=== PATIENT | male | born 1965 | race Caucasian/White ===

== ENCOUNTER → 2016-06-12 | Day surgery (SDC) | payer MEDICARE, OTHER ==
[~2016-06-12] MED LIST: ALPRAZOLAM; ALPRAZOLAM PO; AUGMENTIN PO; CATAPRES PATCH TD; CATAPRES-TTS-20.2 MG EXT; CIPRO; CIPRO PO; CIPRO750 M1 PO; CLEOCIN PO; CLONIDINE; DURAGESIC1 EAC1 TOP; DURAGESIC100 MCG EXT; DURAGESIC12 MCG; EFFEXOR75 M1 PO; FENTANYL1 PATCH .7; FLEXERIL PO; FLOMAX0.4 M1 PO; GLUCOTROL PO; GLUCOTROL XL PO; HYDROCODON-ACE1 EAC5 PO; IRON1 TAB PO; KEFLEX500 M1 PO; KLONOPIN TOP; LAMICTAL PO; LEVAQUIN PO; LEVAQUIN750 MG PO; LORTAB 10-3251 EACH PO; LORTAB 10/500 T1 TAB; LORTAB 10/500 T1 TAB PO; METOPROLOL TART25 MG PO; OXYCODON HCL-1 UDTA1 PO; OXYCODONE HCL15 MG PO; PERCOCET 10/31 UDTA1 PO; PERCOCET 10/3251 TAB PO; PERCOCET10 PO; PERCOCET5/325; PHENAZOPYRIDIN100 MG PO; PHENERGAN25 MG PO; PREDNISONE1 MG PO; TOPAMAX; TOPAMAX PO; XARELTO20 MG PO
--- NOTE | ~2016-06-12 | OR ---
Unit #: [id number] #: [id number] Patient: MINA KU [id number] [address] [place], [place] [address] [id number] O MR#: [id number] NAME: MINA KU ROOM: Date of Procedure: 06/12/2016 Admission Date: 06/12/2016 Surgeon: Castro Haider M.D. : 1965 Attending Physician: Castro Haider M.D. Primary Care Physician: Coleen Benitez M.D. PROCEDURE OPERATIVE NOTE PREOPERATIVE DIAGNOSIS Chronic regional pain syndrome lower extremity, phantom limb, intractable pain. POSTOPERATIVE DIAGNOSIS Chronic regional pain syndrome lower extremity, phantom limb, intractable pain. PROCEDURE PERFORMED Lumbar sympathetic block following intravenous sedation, fluoroscopic guidance and needle localization. HISTORY The patient is a 51-year-old male with return of symptoms associated with CRPS. This is due to multiple surgeries including AKA. He has lymphoma that has not responded to treatment either. The sympathetic *____ get bad. He has done well with LSB. His last injections were done over six months ago, last * sympathetic block * patient's history, pathology, symptomatology and treatment options. DESCRIPTION OF PROCEDURE The patient was placed in a prone position. Standard monitors were applied. A sterile prep and drape of the thoracolumbar area was performed. The skin at the left of midline at the L1 level was localized with 1% lidocaine. A long 22-gauge [place] spinal needle was then advanced with biplane fluoroscopy to the lateral border of the L1 vertebral body. The needle was then advanced to the anterolateral border of L1. After confirming proper positioning with biplane fluoroscopy, loss of resistance technique and with radiographic contrast, a dose of 10 mL of 0.25% bupivacaine was deposited. There was negative intermittent aspiration every 2-3 mL. The patient tolerated the procedure otherwise well and was discharged to the recovery room in stable condition. *Faxed to Dr. Haider' office on 06/19/16 for completion. cd Dictated by... Castro Haider M.D. IVA/luna TD: 06/19/2016 10:33 Unit #: [id number] #: [id number] Patient: MINA KU JOB #: [id number] PROCEDURE OPERATIVE NOTE Page 1 of 1 X Castro Haider MD X PROCEDURE OPERATIVE NOTE
== END | disposition home or self-care (01) ==
LOC: CCSC 07:14
DX: G90.522 Complex regional pain syndrome I of left lower limb (principal); I10 Essential (primary) hypertension; E11.9 Type 2 diabetes mellitus without complications; F41.9 Anxiety disorder, unspecified; F32.9 Major depressive disorder, single episode, unspecified; Z85.72 Personal history of non-Hodgkin lymphomas; Z89.619 Acquired absence of unspecified leg above knee
CPT/HCPCS: 82947; J2250; J3010

== ENCOUNTER → 2016-06-19 | Day surgery (SDC) | payer MEDICARE, OTHER ==
--- NOTE | ~2016-06-19 | OR ---
Unit #: [id number] #: [id number] Patient: MINA KU [id number] [address] [place], [place] [address] [id number] O MR#: [id number] NAME: MINA KU ROOM: Date of Procedure: 06/19/2016 Admission Date: 06/19/2016 Surgeon: Castro Haider M.D. : 1965 Attending Physician: Castro Haider M.D. Referring Physician: Castro Haider M.D. Primary Care Physician: Raven Smith M.D. OPERATIVE REPORT PREOPERATIVE DIAGNOSES Chronic regional pain syndrome, lower extremity and phantom limb pain. POSTOPERATIVE DIAGNOSES Chronic regional pain syndrome, lower extremity and phantom limb pain. PROCEDURE PERFORMED Lumbar sympathetic block with intravenous sedation under fluoroscopic guidance and needle localization. INDICATIONS FOR PROCEDURE The patient is a 51-year-old male with a previously mentioned diagnosis. He has failed all conservative trials and management with regard to resolving his RSD. He was treated medically with p.r.n. sympathetic blockade when his pain flares and will not settle. Injection in last week, which resulted in some mild to moderate improvement. This essentially is the second or third injection before the pain gets down appreciable amount. DESCRIPTION OF PROCEDURE The patient was placed in a prone position. Standard monitors were applied. A total 4 mg of Versed and 100 mcg of fentanyl were given for anxiolysis and sedation. We did have some trouble getting that medicine in due to poor venous access. We were able to maintain O2 working IV. Sterile prep and drape of the thoracolumbar area was performed. The skin then to the left of midline at the L1 level was localized with 1% lidocaine. A long 22-gauge [place] spinal needle was then advanced with biplanar fluoroscopic guidance at lateral border of the L2 vertebral body. The needle was worked up to the anterolateral border. Position was checked with loss of resistance with biplanar fluoroscopy and radiographic contrast. After confirming this, proper needle tip positioning in this manner, a dose of 10 mL of 0.25% bupivacaine was deposited. There was negative intermittent aspiration every 2 to 3 mL. The patient tolerated the procedure otherwise well and was discharged to the recovery room in stable condition. Dictated by... Castro Haider M.D. P/modl Unit #: [id number] #: [id number] Patient: MINA KU TD: 06/19/2016 08:58 JOB #: [id number] OPERATIVE REPORT Page 1 of 1 X Castro Haider MD X PROCEDURE OPERATIVE NOTE
== END | disposition home or self-care (01) ==
LOC: CCSC 07:04
DX: G90.522 Complex regional pain syndrome I of left lower limb (principal)
CPT/HCPCS: J0461; J1040; J2250; J2310; J3010

== ENCOUNTER → 2016-06-26 | Day surgery (SDC) | payer MEDICARE ==
--- NOTE | ~2016-06-26 | OR ---
Unit #: [id number] #: [id number] Patient: MINA KU [id number] [address] [place], [place] [address] [id number] O MR#: [id number] NAME: MINA KU ROOM: Date of Procedure: 06/26/2016 Admission Date: 06/26/2016 Surgeon: Castro Haider M.D. : 1965 Attending Physician: Castro Haider M.D. Referring Physician: Castro Haider M.D. Primary Care Physician: Raven Smith M.D. OPERATIVE REPORT PREOPERATIVE DIAGNOSES Chronic regional pain syndrome, lower extremity phantom limb pain. POSTOPERATIVE DIAGNOSES Chronic regional pain syndrome, lower extremity phantom limb pain. PROCEDURE PERFORMED Lumbar sympathetic block with intravenous sedation and fluoroscopic guidance for needle localization. INDICATIONS FOR PROCEDURE The patient is 51-year-old male with previously mentioned diagnosis. He has failed extensive attempts at rehabilitative medical management alone, was treated intermittently with sympathetic blockade which has been very effective from last series of injections which were completed about 7 or 8 months ago. He had a resurgence of the pain. It has become severe. He has had 2 injections done over the last few weeks which has given typical added improvement he gets, proceed with what should be a final injection at this point and follow the patient up as needed in the future. DESCRIPTION OF PROCEDURE The patient was placed in a prone position. Standard monitors were applied. 4 mg of Versed and 100 mcg of fentanyl were given for sedation and anxiolysis, which were adequate. Vital signs remained stable. Sterile prep and drape then of the thoracolumbar area was performed. The skin then to the left of midline at the L1 level was localized with 1% lidocaine. A long 22-gauge [place] spinal needle was advanced with biplanar fluoroscopic guidance to the lateral border of the L1 vertebral body. The needle was walked up to the anterolateral border of L1. Position was confirmed with loss of resistance with biplanar fluoroscopy and radiographic contrast. After confirming proper positioning, a total a 10 mL of 0.25% bupivacaine were deposited. There was negative intermittent aspiration every 2 to 3 mL. The patient tolerated the procedure otherwise well and was discharged to the recovery room in stable condition. Dictated by... Castro Haider M.D. [facility] Unit #: [id number] #: [id number] Patient: MINA KU TD: 06/26/2016 08:26 JOB #: [id number] OPERATIVE REPORT Page 1 of 1 X Castro Haider MD X PROCEDURE OPERATIVE NOTE
== END | disposition home or self-care (01) ==
LOC: CCSC 06:58
DX: G54.6 Phantom limb syndrome with pain (principal); G90.529 Complex regional pain syndrome I of unspecified lower limb; I10 Essential (primary) hypertension; E11.9 Type 2 diabetes mellitus without complications; C85.90 Non-Hodgkin lymphoma, unspecified, unspecified site
CPT/HCPCS: 82947; J1040; J2250; J3010

== ENCOUNTER → 2016-08-23 | Day surgery (SDC) | payer MEDICARE ==
--- NOTE | ~2016-08-23 | OR ---
Unit #: [id number] #: [id number] Patient: MINA KU [id number] [address] [place], [place] [address] [id number] O MR#: [id number] NAME: MINA KU ROOM: Date of Procedure: 08/23/2016 Admission Date: 08/23/2016 Surgeon: Castro Haider M.D. : 1965 Attending Physician: Castro Haider M.D. Primary Care Physician: Coleen Levy OPERATIVE REPORT PREOPERATIVE DIAGNOSIS Chronic regional pain syndrome of the lower extremity. POSTOPERATIVE DIAGNOSIS Chronic regional pain syndrome of the lower extremity. PROCEDURE PERFORMED Lumbar sympathetic block with intravenous sedation and fluoroscopic guidance for needle localization. INDICATIONS FOR PROCEDURE The patient is a 51-year-old male with CRPS of the left lower extremity due to in the form of multiple surgeries. He was treated medically and p.r.n. sympathetic blockade. He had a series of injections done back in 11/2015 and did well with that for about 7 months. Repeat injection was done 2 months ago that did not last work as long as usual. Based on symptoms, pathology, symptomatology, and available options, we are going to proceed with a repeat blocks today. DESCRIPTION OF PROCEDURE The patient was placed in a prone position. Standard monitors were applied. 4 mg of Versed and 100 mcg of fentanyl were given for sedation and anxiolysis, which were adequate. Vital signs remained stable. Sterile prep and drape then of the thoracolumbar area was performed. The skin to the left of midline was localized with 1% lidocaine. A long 22-gauge [place] spinal needle was then advanced with biplanar fluoroscopic guidance to the lateral border of the L1 vertebral body. The needle was walked up to the anterolateral border. Position was confirmed with loss of resistance with biplanar fluoroscopy with radiographic contrast. After confirming proper positioning, 10 mL of 0.25% bupivacaine were deposited. There was negative intermittent aspiration every 2 to 3 mL. The patient tolerated the procedure otherwise well and was discharged to recovery room in stable condition. Dictated by... Castro Haider M.D. LHP/alexl Unit #: [id number] #: [id number] Patient: MINA KU Zeke TD: 08/24/2016 00:18 JOB #: [id number] OPERATIVE REPORT Page 1 of 1 X Castro Haider MD X PROCEDURE OPERATIVE NOTE
== END | disposition home or self-care (01) ==
LOC: CCSC 07:46
DX: G90.522 Complex regional pain syndrome I of left lower limb (principal); G54.6 Phantom limb syndrome with pain; E11.9 Type 2 diabetes mellitus without complications; I10 Essential (primary) hypertension
CPT/HCPCS: 82947; J1040; J2250; J3010

== ENCOUNTER → 2016-08-30 | Day surgery (SDC) | payer MEDICARE ==
--- NOTE | ~2016-08-30 | OR ---
Unit #: [id number] #: [id number] Patient: MINA KU [id number] [address] [place], [place] [address] [id number] O MR#: [id number] NAME: MINA KU. ROOM: Date of Procedure: 08/30/2016 Admission Date: 08/30/2016 Surgeon: Castro Haider M.D. : 1965 Attending Physician: Castro Haider M.D. Referring Physician: Castro Haider M.D. Primary Care Physician: Primary Care Physician No OPERATIVE REPORT JOB NOTE: CC: [facility]. PREOPERATIVE DIAGNOSIS Chronic regional pain syndrome, lower extremity. POSTOPERATIVE DIAGNOSIS Chronic regional pain syndrome, lower extremity. PROCEDURE PERFORMED Lumbar sympathetic block with intravenous sedation and fluoroscopic guidance for needle localization. INDICATIONS FOR PROCEDURE The patient is a 51-year-old male with chronic regional pain syndrome of the lower extremity due to multiple surgeries associated with lymphoma. He was only partially medically treated. He requires p.r.n. sympathetic blockade. Last injection was done about a week and helped to partially settle his symptom complex. We are going to proceed with a second injection today. DESCRIPTION OF PROCEDURE The patient was placed in a prone position. Standard monitors were applied. 4 mg of Versed and 100 mcg of fentanyl were given for sedation and anxiolysis, which were adequate. Vital signs remained stable. Sterile prep and drape then of the thoracolumbar area was performed to the left midline. A long 22-gauge [place] spinal needle was advanced with biplanar fluoroscopic guidance to bring the needle tip to the lateral border of the L1 vertebral body. The needle was then walked up to the anterolateral border of the L1 vertebral body. Position was confirmed with loss of resistance and radiographic contrast with biplanar fluoroscopy. A dose of 10 mL of 0.25% bupivacaine were deposited. There was negative intermittent aspiration every 2 to 3 mL. Dictated by... Castro Haider M.D. LHP/modl TD: 08/31/2016 04:35 JOB #: [id number] Unit #: [id number] #: [id number] Patient: MINA KU OPERATIVE REPORT Page 1 of 1 X Castro Haider MD X PROCEDURE OPERATIVE NOTE
== END | disposition home or self-care (01) ==
LOC: CCSC 07:31
DX: G90.529 Complex regional pain syndrome I of unspecified lower limb (principal); E11.9 Type 2 diabetes mellitus without complications
CPT/HCPCS: 82947; J1040; J2250; J3010

== ENCOUNTER → 2016-09-13 | Day surgery (SDC) | payer MEDICARE, OTHER ==
--- NOTE | ~2016-09-13 | OR ---
Unit #: [id number] #: [id number] Patient: MINA KU [id number] [address] [place], [place] [address] [id number] O MR#: [id number] NAME: MINA KU ROOM: Date of Procedure: 09/13/2016 Admission Date: 09/13/2016 Surgeon: Castro Haider M.D. : 1965 Attending Physician: Castro Haider M.D. Referring Physician: Castro Haider M.D. Primary Care Physician: Raven Smith M.D. OPERATIVE REPORT PROCEDURE PERFORMED Chronic regional pain syndrome, lower extremity. POSTOPERATIVE DIAGNOSIS Chronic regional pain syndrome, lower extremity. PROCEDURE PERFORMED Lumbar sympathetic block with intravenous sedation and fluoroscopic guidance for needle localization. INDICATIONS FOR PROCEDURE The patient is a 51-year-old male, who had return of symptoms associated with his diagnosis of CRPS. He has been retractive with other conservative measures. Sympathetic blockade has given him several months of improvement. He had 2 injections done over the last month or so with significant improvement in his symptom complex. He is not quite back down to as well as he gotten in the past, so proceed with what should be a final injection at this point. DESCRIPTION OF PROCEDURE The patient was placed in a prone position. Standard monitors were applied. 4 mg of Versed and 100 mcg of fentanyl were given for sedation and anxiolysis, which were adequate. Vital signs remained stable. Sterile prep and drape then of the thoracolumbar area was performed. The skin then to the left of midline at the L1 level was localized with 1% lidocaine. A long 22-gauge [place] spinal needle was then advanced to the lateral border of the L1 vertebral body. The needle was then walked up to the anterolateral border. Position was confirmed with biplanar fluoroscopy and radiographic contrast as well as loss of resistance technique. After confirming proper positioning, a dose of 10 mL of 0.25% bupivacaine were deposited with negative intermittent aspiration. The patient tolerated the procedure otherwise well and was discharged to the recovery room in stable condition. Dictated by... Castro Haider M.D. LHP/modl Unit #: [id number] #: [id number] Patient: MINA UK Zeke TD: 09/13/2016 15:15 JOB #: [id number] OPERATIVE REPORT Page 1 of 1 X Castro Haider MD X PROCEDURE OPERATIVE NOTE
== END | disposition home or self-care (01) ==
LOC: CCSC 07:18
DX: G90.529 Complex regional pain syndrome I of unspecified lower limb (principal); E11.9 Type 2 diabetes mellitus without complications; I10 Essential (primary) hypertension
CPT/HCPCS: J2250; J3010